=== PATIENT | male | born 1960 | race Caucasian/White ===

== ENCOUNTER 2017-11-20 06:50 | Day surgery (SDC) | payer OTHER ==
[2017-11-20] MEDS ORDERED: fentaNYL 100 MCG/2 ML INJ IVP ONE (06:52)
[2017-11-20] MEDS ORDERED: MIDAZOLAM 2 MG/2 ML VIAL IVP ONE (06:52)
[2017-11-20] MEDS ORDERED: NS 500 ML IV ONE (06:52)
[2017-11-20] MEDS ORDERED: ATROPINE SULFATE 1 MG/10 ML SYR IVP ONE (06:52)
--- NOTE | 2017-11-20 07:07 | CPEKG ---
Heart Rate: 103 RR Interval: 583 QRSD Interval: 78 QT Interval: 344 QTC Interval: 451 QRS [place]: 64 T Wave [place]: 41 EKG Severity - ABNORMAL ECG - EKG Impression: ATRIAL FIBRILLATION, V-RATE 85-138 Electronically Signed By: Mike Tadeo 20-Nov-2017 08:30:40
[2017-11-20 07:29] LABS: INR 1.27 (0.83-1.16); PROTIME(PATIENT) 16.1 SEC (12.0-15.0)
[2017-11-20] MEDS ORDERED: fentaNYL 100 MCG/2 ML INJ IVP PRN (08:04)
[2017-11-20] MEDS ORDERED: NALOXONE HCL 0.4 MG/ML INJ IVP PRN (08:04)
--- NOTE | 2017-11-20 08:04 | PDANEPAE ---
ANE History of Present Illness here for CV for AF ANE Past Medical History - Cardiovascular History Hx Hypertension: Yes Hx Arrhythmias: Yes Hx Chest Pain: No Hx Coronary Artery / Peripheral Vascular Disease: Yes Hx CHF / Valvular Disease: No Hx Palpitations: No - Pulmonary History Hx COPD: No Hx Asthma/Reactive Airway Disease: No Hx Recent Upper Respiratory Infection: No Hx Oxygen in Use at Home: No Hx Sleep Apnea: No - Neurologic History Hx Cerebrovascular Accident: No Hx Seizures: No Hx Dementia: No - Endocrine History Hx Diabetes: No Hypothyroid: No Hyperthyroid: No Obesity: mild - Renal History Hx Renal Disorders: No - Liver History Hx Hepatic Disorders: No - Neurological & Psychiatric Hx Hx Neurological and Psychiatric Disorders: No - Cancer History Hx Cancer: No - Congenital Disorder History Hx Congenital Disorders: No - GI History GERD: no Hx Gastrointestinal Disorders: No - Other Health History Other Health History: heavy ETOH use - Surgical History Prior Surgeries: dental ANE Review of Systems Review of systems is: negative Review of Systems: - Exercise capacity Exercise capacity: >=4 METS ANE Patient History - Allergies Allergies/Adverse Reactions: No Known Allergies Allergy (Unverified 11/20/17 06:51) - Home Medications Home medications: home medication list seen and reviewed - NPO status NPO Status: no food or drink >8 hours - Anes Hx Anes Hx: no prior problems (quite 2000) - Smoking Hx Smoking Status: Former smoker ANE Labs/Vital Signs - Labs Result Diagrams: 11/20/17 07:15 - Vital Signs Vital Signs: reviewed preoperatively; see RN documention for details Height: 185 cm Weight: 93 kg ANE Physical Exam - Airway Neck exam: FROM Mallampati Score: Class 1 - Pulmonary Pulmonary: no respiratory distress - Cardiovascular Cardiovascular: irregularly irregular - ASA Status ASA Status: II ANE Anesthesia Plan Anesthesia Plan: GA with mask
[2017-11-20] MEDS ORDERED: PROPOFOL 200 MG/20 ML VIAL ONE ×2 (08:26→08:43)
--- NOTE | 2017-11-20 08:34 | PDHPUP ---
History & Physical Update H&P update statement: This history and physical update is based on an assessment of the patient which was completed after admission or registration (within 24 hours), but prior to the surgery/procedure. H&P update: H&P reviewed & patient examined, no change in patient's condition since H&P completed
--- NOTE | 2017-11-20 09:17 | EPPROC ---
Electrophysiology Procedure Note: Procedure: CV Indication: Pt sedated by anesthesia staff. Once sedated, pt was CV using 200J of synchronized DCCV. Pt converted to SR, However, within 5 min he converted back to AF. The pt was sedated again and then underwent 200J of synchronized DCCV. He converted to Sr and then went back into Af in 5 min.Hence it was decided to hold off on further attempts and plan to place him on Sotalol. Conclusion: Successful Cv
--- NOTE | 2017-11-20 13:23 | POSTANESTH ---
Post Anesthetic Evaluation Cardiovascular Status: Normal, Stable Respiratory Status: Normal, Stable Level of Consciousness/Mental Status: Can Participate in Eval Pain Control: Adequate, Prn Tx Ordered Nausea/Vomiting Control: Adequate, Prn Tx Ordered Complications Possibly Related to Anesthesia: None Noted
== END 2017-11-20 10:09 | disposition home or self-care (01) ==
LOC: FCATH 06:50
PROVIDERS: ATTEND Internal Medicine Cardiovascular Disease
PROC: 5A2204Z Restoration of Cardiac Rhythm, Single (ICD-10-PCS; principal; 2017-11-20)
DX: I48.91 Unspecified atrial fibrillation (principal); I10 Essential (primary) hypertension; E78.5 Hyperlipidemia, unspecified; I25.10 Atherosclerotic heart disease of native coronary artery without angina pectoris; Z87.891 Personal history of nicotine dependence
CPT/HCPCS: J0461; J2704

== ENCOUNTER 2017-11-25 09:31 | Inpatient (IN) | payer OTHER ==
--- NOTE | 2017-11-25 10:09 | CPEKG ---
Heart Rate: 93 RR Interval: 645 QRSD Interval: 74 QT Interval: 364 QTC Interval: 453 QRS [place]: 54 T Wave [place]: 42 EKG Severity - ABNORMAL ECG - EKG Impression: ATRIAL FIBRILLATION, V-RATE 63-128 Electronically Signed By: Sim Blair 25-Nov-2017 10:36:38
[2017-11-25 10:18] LABS: PLATELET COUNT 208 10^3/uL (150-400)
[2017-11-25 10:30] LABS: INR 1.17 (0.83-1.16); PROTIME(PATIENT) 15.1 SEC (12.0-15.0)
[2017-11-25] MEDS ORDERED: ADALIMUMAB 40 MG SQ SCH (11:45)
--- NOTE | 2017-11-25 12:11 | PDCARPN ---
Cardiology Progress Note Chief Complaint: AF Assessment/Plan: Assessment: 57-y/o M PMH persistent AF, htn, Crohn's, here for Sotalol titration. Please see office note from 11/12/17, which acts as H&P. Pt new to me. Chart reviewed. Floor time coordinating care >30 min. ECG personally interpreted is AF CVR. Spoke with Dr. Arzate. #. AF: failed attempts to cardiovert 11/20/17 now admitted for Sotalol titration baseline labs wnl [id number] 1 #. htn: continue home meds #. Diet: regular #. DVT ppx: on Eliquis plan for early ambulation #. LOS: >48 hours for high risk med titration Plan: Start Sotalol 11/25/17 12:05 Subjective: Notes palps. Also notes heaviness in limbs and headache which have been ongoing issues. Objective: Vital Signs (8 Hrs) Temp Pulse Resp BP Pulse Ox 11/25/17 10:15 98.8 F 71 16 124/90 H 96 Result Diagrams: 11/25/17 10:00 11/25/17 10:00 EKG: AF Telemetry: AF some RVR Echocardiogram: 10/17/17 EF 61, R/LA mild dilated, mild TR, trivial PI - Physical Exam Constitutional: healthy appearing, no apparent distress Eyes: PERRL, anicteric sclera Ears, Nose, Mouth, Throat: moist mucous membranes Cardiovascular: irregularly irregular, No systolic murmur Respiratory: clear to auscultate bilat, no crackles Gastrointestinal: normoactive bowel sounds Genitourinary: No lu in urethra Skin: no rashes, no abrasions Neurologic: AAOx3 Psychiatric: cooperative, interactive ICD10 Worksheet Patient Problems: Problems Problem Status Onset Afib Acute - ICD10 Problem Qualifiers (1) Afib
[2017-11-25] MEDS: SOTALOL HCL 80 MG TAB PO SCH ×2 (12:19→21:07)
--- NOTE | 2017-11-25 12:53 | PDMN ---
Medical Necessity Medical necessity: MCG: M505 Afib- A-1 day sotalol loading
--- NOTE | 2017-11-25 14:26 | CPEKG ---
Heart Rate: 91 RR Interval: 659 QRSD Interval: 74 QT Interval: 384 QTC Interval: 473 QRS [place]: 65 T Wave [place]: 37 EKG Severity - ABNORMAL ECG - EKG Impression: ATRIAL FIBRILLATION Electronically Signed By: Sim Blair 25-Nov-2017 14:59:51
--- NOTE | 2017-11-25 15:50 | ASMTCMCOM ---
CM Note CM Note Notes: Pt admitted for Sotalol titration, unsuccessful cardioversion yesterday. Anticipate that he will dc home independantly when medically stable. Date Signed: 11/25/2017 03:50 PM Electronically Signed By:Mary Sharp RN
--- NOTE | 2017-11-25 15:55 | ASMTCMCOM ---
CM Note CM Note Notes: Correction to last case management note: Unsuccessful cardioversion was on 11/20/17 per PA progress note today. Date Signed: 11/25/2017 03:54 PM Electronically Signed By:Mary Sharp RN
[2017-11-25] MEDS: APIXABAN 5 MG TAB PO SCH (19:20)
[2017-11-26 04:35] LABS: INR 1.15 (0.83-1.16); PROTIME(PATIENT) 14.9 SEC (12.0-15.0)
[2017-11-26] MEDS ORDERED: NON-FORMULARY NEW DRUG (Omeprazole [Omeprazole] 40 MG) PO SCH (09:00)
--- NOTE | 2017-11-26 09:03 | CPEKG ---
Heart Rate: 72 RR Interval: 833 QRSD Interval: 84 QT Interval: 400 QTC Interval: 438 QRS [place]: 62 T Wave [place]: 38 EKG Severity - ABNORMAL ECG - EKG Impression: Atrial fibrillation Electronically Signed By: Mando Fallon 26-Nov-2017 12:58:31
[2017-11-26] MEDS: LISINOPRIL 5 MG TAB PO SCH (09:32)
[2017-11-26] MEDS: APIXABAN 5 MG TAB PO SCH ×2 (09:32→21:20)
[2017-11-26] MEDS: SOTALOL HCL 80 MG TAB PO SCH ×2 (09:32→21:20)
[2017-11-26] MEDS: CHOLECALCIFEROL VIT D3 1,000 UNITS TAB PO SCH (09:32)
[2017-11-26] MEDS: PANTOPRAZOLE SODIUM 40 MG TAB PO SCH (09:33)
--- NOTE | 2017-11-26 09:41 | CPEKG ---
Heart Rate: 71 RR Interval: 845 QRSD Interval: 82 QT Interval: 376 QTC Interval: 409 QRS [place]: 48 T Wave [place]: 31 EKG Severity - ABNORMAL ECG - EKG Impression: ATRIAL FIBRILLATION Electronically Signed By: Sim Blair 27-Nov-2017 15:27:52
--- NOTE | 2017-11-26 11:37 | CPEKG ---
Heart Rate: 79 RR Interval: 759 QRSD Interval: 78 QT Interval: 396 QTC Interval: 455 QRS [place]: 33 T Wave [place]: 30 EKG Severity - ABNORMAL ECG - EKG Impression: ATRIAL FIBRILLATION Electronically Signed By: Sim Blair 27-Nov-2017 15:27:48
--- NOTE | 2017-11-26 15:22 | PDCARPN ---
Cardiology Progress Note Chief Complaint: AF Assessment/Plan: Assessment: 57-y/o M PMH persistent AF, htn, Crohn's, here for Sotalol titration. Please see office note from 11/12/17, which acts as H&P. ECG personally interpreted is AF CVR. Spoke with Dr. Arzate. #. AF: failed attempts to cardiovert 11/20/17 now admitted for Sotalol titration labs wnl [id number] 1 #. htn: continue home meds #. Diet: regular #. DVT ppx: on Eliquis plan for early ambulation #. LOS: >48 hours for high risk med titration Plan: Continue Sotalol Cardioversion in AM 11/26/17 15:20 Subjective: Feels about the same. No cp/dyspnea. Objective: Vital Signs (8 Hrs) Temp Pulse Resp BP Pulse Ox 11/26/17 11:31 98.7 F 78 14 114/79 93 11/26/17 07:28 97.9 F 80 16 139/97 H 93 Intake/Output (24 Hrs) 11/25/17 11/26/17 11/27/17 05:59 05:59 05:59 Intake Total 1500 Balance 1500 Intake: Oral (ml) 1500 Other: Weight 92 kg Intake Quantity Yes Sufficient Number of Voids Toilet 3 Result Diagrams: 11/25/17 10:00 11/26/17 03:50 EKG: AF with CVR (personally interpreted) Telemetry: reviewed- AF - Physical Exam Constitutional: healthy appearing Eyes: PERRL Ears, Nose, Mouth, Throat: moist mucous membranes Cardiovascular: irregularly irregular Respiratory: clear to auscultate bilat, no crackles ICD10 Worksheet Patient Problems: Problems Problem Status Onset Afib Acute - ICD10 Problem Qualifiers (1) Afib
--- NOTE | 2017-11-26 23:39 | CPEKG ---
Heart Rate: 78 RR Interval: 769 QRSD Interval: 80 QT Interval: 396 QTC Interval: 452 QRS [place]: 69 T Wave [place]: 42 EKG Severity - ABNORMAL ECG - EKG Impression: ATRIAL FIBRILLATION Electronically Signed By: Sim Blair 27-Nov-2017 15:27:42
[2017-11-27] MEDS ORDERED: ATROPINE SULFATE 1 MG/10 ML SYR IVP ONE (06:00)
[2017-11-27] MEDS ORDERED: PROPOFOL 200 MG/20 ML VIAL ONE (08:15)
[2017-11-27] MEDS ORDERED: NALOXONE HCL 0.4 MG/ML INJ IVP PRN (08:20)
--- NOTE | 2017-11-27 08:20 | PDANEPAE ---
ANE History of Present Illness A fib CV ANE Past Medical History - Cardiovascular History Hx Hypertension: Yes Hx Arrhythmias: Yes Hx Chest Pain: No Hx Coronary Artery / Peripheral Vascular Disease: Yes Hx CHF / Valvular Disease: No Hx Palpitations: No - Pulmonary History Hx COPD: No Hx Asthma/Reactive Airway Disease: No Hx Recent Upper Respiratory Infection: No Hx Oxygen in Use at Home: No Hx Sleep Apnea: No - Neurologic History Hx Cerebrovascular Accident: No Hx Seizures: No Hx Dementia: No - Endocrine History Hx Diabetes: No Hypothyroid: No Hyperthyroid: No Obesity: no - Renal History Hx Renal Disorders: No - Liver History Hx Hepatic Disorders: No - Neurological & Psychiatric Hx Hx Neurological and Psychiatric Disorders: No - Cancer History Hx Cancer: No - Congenital Disorder History Hx Congenital Disorders: No - GI History Hx Gastrointestinal Disorders: No - Other Health History Other Health History: heavy ETOH use - Chronic Pain History Chronic Pain: No - Surgical History Prior Surgeries: dental ANE Review of Systems Review of Systems: - Exercise capacity METS (RN): 4 METS ANE Patient History - Allergies Allergies/Adverse Reactions: Penicillins Allergy (Verified 11/25/17 10:51) Other-Enter Comments - Home Medications Home medications: home medication list seen and reviewed Home Medications: Adalimumab [Humira] 40 mg SQ Q14D 11/25/17 [Last Taken 11/25/17] Apixaban [Eliquis] 5 mg PO BID 11/25/17 [Last Taken 11/25/17] Cholecalciferol Vit D3 [Vitamin D3 (*)] 1,000 units PO DAILY 11/25/17 [Last Taken 11/25/17] Herbals/Supplements -Info Only 1 each PO DAILY 11/25/17 [Last Taken Unknown] Lisinopril [Zestril 5 mg (*)] 5 mg PO DAILY 11/25/17 [Last Taken 11/25/17] Omeprazole 40 mg PO DAILY 11/25/17 [Last Taken 11/25/17] clonIDINE [Catapres (*)] 0.3 mg PO BID 11/25/17 [Last Taken 11/25/17] - NPO status NPO Status: no food or drink >8 hours - Smoking Hx Smoking Status: Former smoker ANE Labs/Vital Signs - Labs Result Diagrams: 11/25/17 10:00 11/26/17 03:50 - Vital Signs Blood Pressure: 126/87 Heart Rate: 77 Respiratory Rate: 16 O2 Sat (%): 96 Height: 182.88 cm Weight: 92 kg ANE Physical Exam - Airway Neck exam: FROM Mallampati Score: Class 2 - Pulmonary Pulmonary: no respiratory distress - Cardiovascular Cardiovascular: irregularly irregular ANE Anesthesia Plan Total IV Anesthesia: Yes
--- NOTE | 2017-11-27 08:40 | CPEKG ---
Heart Rate: 59 RR Interval: 1017 P-R Interval: 164 QRSD Interval: 94 QT Interval: 436 QTC Interval: 432 P [place]: 57 QRS [place]: 55 T Wave [place]: 27 EKG Severity - NORMAL ECG - EKG Impression: SINUS RHYTHM Electronically Signed By: Sim Blair 27-Nov-2017 15:27:37
[2017-11-27] MEDS: APIXABAN 5 MG TAB PO SCH (10:14)
[2017-11-27] MEDS: LISINOPRIL 5 MG TAB PO SCH (10:14)
[2017-11-27] MEDS: PANTOPRAZOLE SODIUM 40 MG TAB PO SCH (10:15)
[2017-11-27] MEDS: CHOLECALCIFEROL VIT D3 1,000 UNITS TAB PO SCH (10:15)
--- NOTE | 2017-11-27 10:30 | ASDISCHSUM ---
Discharge Information Plan Status:Home with No Needs Medically Cleared to Leave:11/27/2017 Discharge Date:11/27/2017 CM D/C Disposition:Home, Routine, Self-Care ADT D/C Disposition:Home, Routine, Self-Care Projected Discharge Date:11/27/2017 Transportation at D/C: Discharge Delay Reason: Follow-Up Date:11/27/2017 Discharge Slot: Final Diagnosis: Placement Information Patient Contact Information Contact Name:ELVIN Relationship: Address:[address] [facility] Work Phone: City:[place] Alternate Phone: State/Zip Code:[place] [address] Email: Financial Information Financial Class:HMO and PPO Plans Primary Plan Desc:[employer] Primary Plan Number:[id number] Secondary Plan Desc: Secondary Plan Number: Assessment Information [facility] CM Progress Note CM Note CM Note Notes: Pt admitted for Sotalol titration, unsuccessful cardioversion yesterday. Anticipate that he will dc home independantly when medically stable. Date Signed: 11/25/2017 03:50 PM Electronically Signed By:Mary Sharp RN LACE LACE Length of stay for Answers: 2 days current admission Acuity / Level of Answers: Yes Care: Did the patient have an inpatient admission? Comorbidities - select Answers: Other Notes: hx of Chrohn's, HTN, Af ib all that apply # of Emergency department Answers: 0 visits in the last 6 months Score: 6 Date Signed: 11/27/2017 10:28 AM Electronically Signed By:Lexis Weiss RN [facility] CM Progress Note CM Note CM Note Notes: Correction to last case management note: Unsuccessful cardioversion was on 11/20/17 per JEAN progress note today. Date Signed: 11/25/2017 03:54 PM Electronically Signed By:Mary Sharp RN Case Management Discharge Plan Note Case Management Discharge Discharge Order Complete? Answers: Yes Patient to Obtain Answers: Independently Medications Discharge Comments Notes: 11/27/2017 Case Management Note Pt to discharge independent with follow up as directed. Date Signed: 11/27/2017 10:29 AM Electronically Signed By:Lexis Weiss RN Intervention Information
[2017-11-27] MEDS: SOTALOL HCL 80 MG TAB PO SCH (10:37)
[2017-11-27 12:57] VITALS: BP 95/56
--- NOTE | 2017-11-27 13:18 | EPPROC ---
Electrophysiology Procedure Note: Procedure: CV Indication: AF Procedure: Pt sedated by anesthesia staff. Once sedated, 200J of synchronized DCCV given. pt successfully converted to SR Conclusion: Successful CV Patient Problems: Problems Problem Status Onset Afib Acute
--- NOTE | 2017-11-27 14:59 | GDS ---
[f rep st] DISCHARGE SUMMARY DISCHARGE DIAGNOSES: 1. Atrial fibrillation, status post sotalol titration and direct current cardioversion. 2. Hypertension. PROCEDURES: 11/28/2007, direct current cardioversion with successful conversion to sinus rhythm. BRIEF HISTORY: Please see dictated H and P from our office for complete details. In brief, the kisha ent is a 57-year-old male with persistent atrial fibrillation, hypertension, and Crohn's, who present ed for sotalol titration. He had 1 failed attempt at cardioversion on 11/20/2017. Today, he had his cardioversion, and it does appear that he is maintaining sinus rhythm. His sotalol dosing is 120 p. o. b.i.d. He is to remain on Eliquis therapy. PHYSICAL EXAM: VITAL SIGNS: On day of discharge, blood pressure 95/56, heart rate of 54, respiratio ns 12, O2 saturation 95% on room air, temperature of 97.5 degrees Fahrenheit. GENERAL: He is a plea sandor male in no apparent distress. EYES: PERRL. HEART: Regular rate and rhythm. LUNGS: Clear. LABORATORY DATA: CBC with WBC of 5.91, hemoglobin 15.5, hematocrit 44.2, platelet count of 2 8. BMP with sodium 140, potassium 4.5, chloride 105, CO2 of 25, BUN 22, creatinine 0.8, glucose 94. RESULTS PENDING: None. DIET: Per previous. ACTIVITY: As tolerated. DISCHARGE MEDICATIONS: Please see med reconciliation. He is being discharged on his home omeprazole , lisinopril, cholecalciferol, apixaban, Humira, clonidine. His new prescription is for sotalol 120 p.o. b.i.d. FOLLOWUP INSTRUCTIONS: Follow up with Dr. Arzate in 2 weeks' time. /[id number]/MODL
[2017-12-09] MEDS ORDERED: Adalimumab [Humira Pen] 40 MG SQ SCH (09:00)
== END 2017-11-27 13:05 | disposition home or self-care (01) | DRG 309 ==
LOC: F2W 09:31 → OBSVTOIN 09:31
PROVIDERS: ADMIT Internal Medicine Cardiovascular Disease; ATTEND Internal Medicine Cardiovascular Disease
PROC: 5A2204Z Restoration of Cardiac Rhythm, Single (ICD-10-PCS; principal; 2017-11-27)
DX: I48.91 Unspecified atrial fibrillation (principal); K50.90 Crohn's disease, unspecified, without complications; I10 Essential (primary) hypertension; E78.5 Hyperlipidemia, unspecified; M10.9 Gout, unspecified; I25.10 Atherosclerotic heart disease of native coronary artery without angina pectoris; Z79.01 Long term (current) use of anticoagulants
CPT/HCPCS: J2704

== ENCOUNTER → 2019-01-04 | Outpatient (CLI) | payer OTHER | LOC: CIMAGING 07:13 ==